=== PATIENT | female | born 1980 | race Caucasian/White ===

== ENCOUNTER 2020-11-18 14:45 | Outpatient (REF) | payer BC, SELFPAY ==
--- NOTE | 2020-11-18 14:00 | PAPFT_PTH ---
PATIENT: Rima Gee LOC: [facility] U#:[id number] AGE/SX: 40/F ROOM: RE11/18/[address]: Summer Torres MD : 1980 BED: DIS: 11/18/2020 SPEC #: [id number] RECD: 11/18/20 17:05 STATUS: ORA RETesha #: [id number] ALLI: 11/18/20 14:[address]: Summer Torres DEPT: [facility] Cytology RECD BY: Dana Cobian ENTERED: 11/18/20 17:06 SP TYPE: PAPFT OTHR DR: Erin Flores Tissues: 1 - CX/ENDOCX FOR PAP SMEARS Procedures: PAP THIN PREP/[facility] Screening HPV DNA PROBE Comments: [id number]
== END 2020-11-18 14:46 | disposition home or self-care (01) ==
LOC: LBN 14:45
PROVIDERS: PCP Nurse Practitioner; Visit Provider Obstetrics & Gynecology
DX: Z12.4 Encounter for screening for malignant neoplasm of cervix (principal); Z87.410 Personal history of cervical dysplasia; Z11.51 Encounter for screening for human papillomavirus (HPV)
CPT/HCPCS: 88142; 87624